=== PATIENT | female | born 1935 | race Hispanic/Latino ===

== ENCOUNTER 2017-02-24 13:42 | Outpatient (CLI) | payer MEDICARE ==
--- NOTE | 2017-02-24 14:11 | XRay Report ---
Chest 2 views: History: Bronchitis. Findings: Normal cardiomediastinal silhouette. Trachea is midline. No consolidation, pneumothorax or pleural effusion. Impression: No acute cardiopulmonary findings.
== END 2017-02-24 13:43 | disposition home or self-care (01) ==
LOC: XRAY 13:42
PROVIDERS: ATTEND Internal Medicine
DX: J40 Bronchitis, not specified as acute or chronic (principal)
CPT/HCPCS: 71020

== ENCOUNTER 2017-03-09 09:48 | Outpatient (CLI) | payer MEDICARE ==
--- NOTE | 2017-03-09 13:09 | Mammography Report ---
LEFT DIGITAL SCREENING MAMMOGRAM with CAD: 03/09/17 09:48:00 CLINICAL: Routine screening. Breast cancer survivor status post right mastectomy. COMPARISON:02/17/16 FINDINGS: Intermediate density breast. Stable scattered punctate calcifications with benign morphology. No mass, architectural distortion or suspicious calcifications. IMPRESSION: No mammographic evidence of malignancy. BI-RADS CATEGORY: 2 -- Benign RECOMMENDATION: Routine screening in one year. ACR BI-RADS MAMMOGRAPHIC CODES: 0 = Needs additional imaging evaluation; 1 = Negative; 2 = Benign; 3 = Probably benign; 4 = Suspicious; 5 = Malignant; 6 = Known biopsy-proven malignancy COMMENT: 1. Dense breast tissue, i.e., adenosis, fibrocystic changes, etc., may obscure an underlying neoplasm. 2. Approximately 10% of cancers are not detected with mammography. 3. A negative mammography report should not delay biopsy if a clinically suspicious mass is present. COMMENT: Patient follow-up letters are generated via our [employer] application.
== END 2017-03-09 09:49 | disposition home or self-care (01) ==
LOC: SPVWC 09:48
PROVIDERS: ATTEND Nurse Practitioner
DX: Z12.31 Encounter for screening mammogram for malignant neoplasm of breast (principal); Z90.11 Acquired absence of right breast and nipple
CPT/HCPCS: G0202-52